=== PATIENT | female | born 1980 | race Hispanic/Latino ===

== ENCOUNTER 2022-09-30 14:35 | Emergency (ER) | payer OTHER, SELFPAY ==
[2022-09-30] VITALS (16 sets, daily range): BP systolic 138–155; BP diastolic 81–87; PULSE 63–81; RESP 16–19; TEMP 36.6; O2SAT 96–100
--- NOTE | ~2022-09-30 | CT_ITS ---
EXAMINATION: CT brain wo con DATE: 09/30/2022 19:15 INDICATION: headache . TECHNIQUE: Computed tomography (CT) of the head was performed without intravenous contrast. The mA wa s adjusted according to patient size. Iterative reconstruction technique was employed. The dose-lengt h product was 605.33 mGy-cm. COMPARISON: None FINDINGS: No acute intracranial hemorrhage or extra-axial fluid collection. No hydrocephalus, mass, or herniation. No acute ischemic infarct. Unremarkable dural venous sinus attenuation. No acute osseous abnormality. The aerated spaces are clear. IMPRESSION: No acute intracranial process. Reviewed, dictated and finalized at location K.
--- NOTE | 2022-09-30 19:26 | ED.HA ---
HPI - Headache General Chief Complaint: Headache Stated Complaint: face tingling, cough, sore throat, headache Time Seen by Provider: 09/30/22 19:04 Source: patient Mode of arrival: ambulatory Limitations: language barrier (Patient's family member is interpreting which she prefers) History of Present Illness HPI Narrative: This is a 41-year-old female that presents to the emergency department for cold symptoms ongoing over the last week. Reports headache, congestion, dry cough, and otalgia. Reports fevers earlier in the week. Denies vision changes, vomiting, numbness, or weakness. Related Data Allergies Allergy/AdvReac Type Severity Reaction Status Date / Time No Known Allergies Allergy Verified 09/30/22 19:00 Review of Systems Review of Systems: CONSTITUTIONAL: Reports fever EYES: Denies visual changes RESPIRATORY: Reports cough GASTROINTESTINAL: Denies vomiting NEUROLOGIC: Reports headache. Denies numbness, or weakness. All systems reviewed & are unremarkable except as noted in HPI and below PMFSH Past Medical History Medical History (Updated 09/30/22 @ 21:17 by Yara Redman PA-C) No active medical problems Social History Social History (Updated 09/30/22 @ 19:27 by Yara Redman PA-C) Smoking status: Never smoker Exam Narrative: GENERAL: Well-appearing, well-nourished, and in no acute distress. HEAD: Normocephalic, atraumatic. EYES: PERRLA and EOMI. ENT: Nares clear, no rhinorrhea or epistaxis. Mucous membranes moist. Oropharynx without tonsillar hypertrophy exudate or other lesions. Bilateral TMs pearly denson non-bulging NECK: Supple. No adenopathy or masses. CHEST: Clear to auscultation. No respiratory distress. No wheezes rales or rhonchi HEART: Regular rate and rhythm. No murmur heard. Normal peripheral pulses. EXTREMITIES: Normal range of motion. No edema. SKIN: Warm, dry, no rash. NEURO: No focal deficits. Alert and oriented x3. Cranial nerves II through XII grossly intact PSYCH: Normal mood and affect Course Vital Signs Vital signs: Vital Signs Temperature 97.9 F 09/30/22 14:59 Pulse Rate 81 09/30/22 14:59 Respiratory Rate 16 09/30/22 14:59 Blood Pressure 155/87 H 09/30/22 14:59 Pulse Oximetry 100 09/30/22 14:59 Oxygen Delivery Room Air 09/30/22 14:59 Temperature 97.9 F 09/30/22 14:59 Pulse Rate 72 09/30/22 19:00 Respiratory Rate 18 09/30/22 19:00 Blood Pressure 143/85 H 09/30/22 19:00 Pulse Oximetry 100 09/30/22 19:00 Oxygen Delivery Room Air 09/30/22 14:59 MDM - Headache MDM Narrative Medical decision making narrative: This is a 41 year old female that presents to the ER for cold symptoms ongoing over the last week. She is afebrile and nontoxic appearing. Lungs are clear on exam. Vitals are stable. Influenza and COVID swabs are negative. Patient largely reporting headaches. CT scan of her brain is negative. She is neurologically intact. Patient and family updated on case findings. She was instructed on continued care of viral infection. She is to follow-up with primary care provider. She was given warnings to return to the ER Lab Data Attestation: I reviewed the patient's lab results. Labs: Lab Results 09/30/22 Range/Units 19:09 Influenza A (RT-PCR) Negative (Negative) Influenza B (RT-PCR) Negative (Negative) SARS-CoV-2 RNA (RT-PCR) Negative Imaging Data Radiologist's impression: ITS Impressions Head CT 09/30/22 19:20 IMPRESSION: No acute intracranial process. Critical Care Time Critical Care Time Critical Care Time: No Discharge Plan Discharge Clinical Impression: Acute viral syndrome Headache Qualifiers: Headache type: unspecified Headache chronicity pattern: acute headache Intractability: not intractable Qualified Code(s): R51.9 - Headache, unspecified Patient Disposition: Home, Self-Care Condition: Stable Instructions: Acute Headache (ED), Julita
[2022-09-30] MEDS: KETOROLAC 30 MG/ML VIAL (*BKC) IM (19:50)
[2022-09-30] MEDS: ACETAMINOPHEN 500 MG TABLET 1000 MG PO (19:50)
[2022-09-30 20:07] LABS: Influenza A QL RT-PCR Negative (Negative); Influenza B QL RT-PCR Negative (Negative); SARS-CoV-2 RNA PCR Negative
== END 2022-09-30 21:39 | disposition home or self-care (01) ==
PROVIDERS: Physician Assistant; Emergency Provider Emergency Medicine; PCP Physician Assistant
DX: B34.9 Viral infection, unspecified (principal); Z20.822 Contact with and (suspected) exposure to COVID-19
CPT/HCPCS: 70450; 87502; 96372; 99284; A9270; J1885; U0003; U0005

== ENCOUNTER 2024-10-19 11:38 | Emergency (ER) | payer OTHER, SELFPAY ==
[2024-10-19 11:41] VITALS: BP 141/79; PULSE 74; RESP 18; TEMP 36.4; O2SAT 99
[2024-10-19] MEDS: KETOROLAC (*BKC) 60 MG/2 ML VIAL IM (13:29)
[2024-10-19] MEDS: MECLIZINE HCL 25 MG TABLET PO (13:30)
[2024-10-19 13:43] LABS: Basophils Percent Auto 0.5 % (0.2-1.2); Eosinophils Absolute Auto 0.2 K/mm3 (0-0.3); Eosinophils Percent Auto 3.8 % (0-4.4); Hemoglobin 12.2 g/dL (12.0-15.0); Immature Granulocyte Absolute 0.01 K/mm3 (0.00-0.031); Immature Granulocyte Percent A 0.2 % (0-0.5); Lymphocytes Absolute Auto 1.98 K/mm3 (0.9-3.2); Lymphocytes Percent Auto 35.5 % (18.3-44.2); Mean Corpuscular Hemoglobin 28.4 pg (26-34); Mean Corpuscular Volume 86.2 fl (80-100); Mean Platelet Volume 10.7 fl (7.4-10.4); Monocytes Absolute Auto 0.4 K/mm3 (0.1-0.6); Monocytes Percent Auto 6.5 % (2.6-8.5); Neutrophils Percent Auto 53.5 % (45.5-73.1); Platelet Count Result 238 k/mm3 (150-375); Red Blood Count 4.29 M/mm3 (4.2-5.4); Red Cell Distribution Width 13.2 % (11.5-14.5); White Blood Count 5.6 K/mm3 (4.5-10.0)
[2024-10-19 13:51] LABS: Alanine Aminotransferase 15 U/L (6-35); Albumin Level 4.3 g/dL (3.5-5.1); Alkaline Phosphatase 84 U/L (38-126); Anion Gap 7 mmol/L (4-12); Aspartate Amino Transferase 20 U/L (14-36); Bilirubin,Total 0.5 mg/dL (0.2-1.3); Blood Urea Nitrogen 10 mg/dL (7-17); Calcium 9.1 mg/dL (8.4-10.2); Carbon Dioxide 27 mmol/L (22-30); Chloride 105 mmol/L (98-107); Estimated CRCL calculation 104 ml/min; Estimated Glomerular Filt Rate > 60; Glucose 93 mg/dL (65-110); Potassium 3.4 mmol/L (3.4-5.0); Sodium 139 mmol/L (137-145)
--- NOTE | 2024-10-19 14:45 | ED.HA ---
HPI - Headache General Chief Complaint: Headache Stated Complaint: nausea and headache, no vomiting or diarrhea Time Seen by Provider: 10/19/24 13:01 History of Present Illness HPI Narrative: Patient is a 43-year-old female who presents ER with headache. Associated with dizziness and nausea. Ongoing over last couple days. Headache is aching and bandlike around the head. No alleviating factors at home. No fevers or chills or sweats. Patient also reports that she has intermittent tingling in right hand with pain that moves upper arm towards her shoulder. 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 Pain is worse at night. Related Data Allergies Allergy/AdvReac Type Severity Reaction Status Date / Time No Known Allergies Allergy Verified 10/19/24 11:40 Review of Systems Review of Systems: All systems reviewed & are unremarkable except as noted in HPI and below Constitutional: Constitutional: Reports no additional constitutional complaints ENT: Reports system reviewed and no additional complaints, except as documented Musculoskeletal: Musculoskeletal: Reports no additional musculoskeletal complaints Neurologic: Reports system reviewed and no additional complaints, except as documented PMFSH Past Medical History Medical History (Updated 10/19/24 @ 14:47 by Shailesh Pablo MD) No active medical problems Social History Social History (Updated 09/30/22 @ 19:27 by Yara Redman PA-C) Smoking status: Never smoker Exam Narrative: GENERAL: Well-appearing, well-nourished, and in no acute distress. HEAD: Normocephalic, atraumatic. EYES: PERRLA and EOMI. ENT: Mucous membranes moist. CHEST: Clear to auscultation. No respiratory distress. HEART: Regular rate and rhythm. Normal peripheral pulses. EXTREMITIES: Normal range of motion. No edema. Positive carpal tunnel compression test right wrist. SKIN: Warm, dry, no rash. NEURO: Alert and oriented x3. PSYCH: Normal mood and affect. Course Course Emergency Course: Feels markedly improved after Toradol meclizine. No more dizziness or nausea. Also discussed carpal tunnel syndrome and need for cock-up wrist splint. Patient verbalized understanding. Discharge. Vital Signs Vital signs: Vital Signs Temperature 97.6 F 10/19/24 11:41 Pulse Rate 74 10/19/24 11:41 Respiratory Rate 18 10/19/24 11:41 Blood Pressure 141/79 H 10/19/24 11:41 Pulse Oximetry 99 10/19/24 11:41 Oxygen Delivery Room Air 10/19/24 11:41 Temperature 97.6 F 10/19/24 11:41 Pulse Rate 74 10/19/24 11:41 Respiratory Rate 18 10/19/24 11:41 Blood Pressure 141/79 H 10/19/24 11:41 Pulse Oximetry 99 10/19/24 11:41 Oxygen Delivery Room Air 10/19/24 11:41 MDM - Headache Lab Data 10/19/24 13:35 10/19/24 13:35 Labs: Lab Results 10/19/24 Range/Units 13:35 WBC 5.6 (4.5-10.0) K/mm3 RBC 4.29 (4.2-5.4) M/mm3 Hgb 12.2 (12.0-15.0) g/dL Hct 37.0 (37.0-47.0) % MCV 86.2 (80-100) fl MCH 28.4 (26-34) pg MCHC 33.0 (32-36) g/dl RDW 13.2 (11.5-14.5) % Plt Count 238 (150-375) k/mm3 MPV 10.7 H (7.4-10.4) fl Immature Gran % (Auto) 0.2 (0-0.5) % Neut % (Auto) 53.5 (45.5-73.1) % Lymph % (Auto) 35.5 (18.3-44.2) % [place] % (Auto) 6.5 (2.6-8.5) % Eos % (Auto) 3.8 (0-4.4) % Baso % (Auto) 0.5 (0.2-1.2) % Lymph # (Auto) 1.98 (0.9-3.2) K/mm3 [place] # (Auto) 0.4 (0.1-0.6) K/mm3 Eos # (Auto) 0.2 (0-0.3) K/mm3 Baso # (Auto) 0.0 (0.0-0.1) K/mm3 Abs Immat Gran (auto) 0.01 (0.00-0.031) K/mm3 Absolute Neuts (auto) 3.0 (1.3-6.7) K/mm3 Absolute Nucleated RBC 0.000 (0.0-0.012) K/mm3 Nucleated RBC % 0.0 (0.0-0.2) % Sodium 139 (137-145) mmol/L Potassium 3.4 (3.4-5.0) mmol/L Chloride 105 (98-107) mmol/L Carbon Dioxide 27 (22-30) mmol/L Anion Gap 7 (4-12) mmol/L BUN 10 (7-17) mg/dL Creatinine 0.50 L (0.7-1.0) mg/dL Estim Creat Clear Calc 104 ml/min Estimated GFR > 60 (59 - ) Glucose 93 (65-110) mg/dL Calcium 9.1 (8.4-10.2) mg/dL Total Bilirubin 0.5 (0.2-1.3) mg/dL AST 20 (14-36) U/L ALT 15 (6-35) U/L Alkaline Phosphatase 84 (38-126) U/L Total Protein 7.0 (6.3-8.2) g/dL Albumin 4.3 (3.5-5.1) g/dL Discharge Plan Discharge Clinical Impression: Headache, Vertigo, Carpal tunnel syndrome Patient Disposition: Home, Self-Care Condition: Stable Instructions: Carpal Tunnel Syndrome (DC), Vertigo (ED), General Headache (ED) Additional Instructions: Try to stay well hydrated at home. Please return to the emergency department if you develop worsening of your headache or a new headache which is severe, associated with vision changes, associated with neck stiffness or fever, or if it is different from any other headache that you have had before. Return to the emergency department if you develop numbness, weakness or tingling or problems with coordination, or if you develop severe nausea and vomiting and are unable to keep down fluids at home. Prescriptions: New naproxen 375 mg tablet 375 mg PO BID Qty: 14 0RF meclizine 12.5 mg tablet 12.5 mg PO TID PRN (Reason: dizziness) Qty: 10 0RF Follow-up/Referrals: UNKNOWN,DOCTOR [Primary Care Provider] - Stand Alone Forms: Work/School Release IP
== END 2024-10-19 15:03 | disposition home or self-care (01) ==
PROVIDERS: Emergency Provider Emergency Medicine
DX: R51.9 Headache, unspecified (principal); R42 Dizziness and giddiness; G56.01 Carpal tunnel syndrome, right upper limb
CPT/HCPCS: 36415; 80053; 85025; 96372; 99283; A9270; J1885

== ENCOUNTER 2025-01-31 15:55 | Outpatient (CLI) | payer OTHER, SELFPAY | END 2025-01-31 15:56 | disposition home or self-care (01) | PROVIDERS: PCP Internal Medicine; Visit Provider Internal Medicine | DX: R51.9 Headache, unspecified (principal) | CPT/HCPCS: 70553; A9577; A9579 ==

== ENCOUNTER 2025-11-03 21:00 | Emergency (ER) | payer OTHER, SELFPAY ==
--- OUTSIDE RECORDS SUMMARY | 2015-01-25 05:30 | XMS_ITS | Continuity of Care Document ---
Author Organization [email or web address] Address [address] [place] [address] Phone Care Team Providers Care Practice Billing Associate Name Role Phone Unavailable Unavailable Unavailable Procedures Procedure Date Voided Encounter Advance Directives Directive Yes / No Effective Date File Name No Information Encounters Encounter Description Practice Location Reason(s) For Visit Diagnoses Date Provider Providers Copied on En[email or web address] [address], [place], [place], [id number], [place] tel:[phone] [email or web address] No Information No Information Family History Family Member Type Diagnosis Age At Onset No Information Payers Payer name Insurance type Covered constitution party ID Authoriza tion(s) No Information Social History Type Description Quantity Date Captured Comments Sex Female Smoking Status No Information Chief Complaint And Reason For Visit No Information Reason For Referral Reason For Referral No Information History Of Present Illness Encounter Date Complaint History Of Prese nt Illness No Information Functional Status Date Functional Assessmen t No Information Instructions Date Instruction Additional Infor mation No Information Assessments Type Assessment Date No Information Patient Care Teams Name Effective Dates (start - stop) Status Members No Information
--- OUTSIDE RECORDS SUMMARY | 2015-01-25 05:30 | XMS_ITS | Continuity of Care Document ---
Author Organization [facility] Address [address] [place] [address] Phone Care Team Providers Care Steel Plate Printer Name Role Phone Unavailable Unavailable Unavailable Procedures Procedure Date Voided Encounter Advance Directives Directive Yes / No Effective Date File Name No Information Encounters Encounter Description Practice Location Reason(s) For Visit Diagnoses Date Provider Providers Copied on Encounter [facility] , [address], [place], [place], [id number], [place] tel:[phone] [facility] No Information No Information Family History Family Member Type Diagnosis Age At Onset No Information Payers Payer name Insurance type Covered republican ID Authoriza tion(s) No Information Social History [...]
--- NOTE | ~2025-11-03 | XR_ITS ---
Examination: XR wrist RT min 3V Clinical History: R wrist injury s/p fall Comparison: None Technique: 4 views right wrist Findings/impression: 1. No fracture or dislocation. Reviewed, dictated and finalized at location R. NG MACHINE OPERATOR
--- NOTE | ~2025-11-03 | CT_ITS ---
EXAMINATION: CT lumbar spine wo con COMPARISON: None HISTORY: back pain s/p fall TECHNIQUE: Axial images were obtained through the spine without IV contrast. Coronal, sagittal reconstruction images were obtained from the axial views. CT scan performed using dose optimization techniques including the following automated exposure control; adjustment of mA and/or kV; use of iterative reconstruction technique. Automatic exposure control was used to reduce radiation dose. Permanent radiation dose record is archived to PACS. FINDINGS: The vertebral heights are intact. No fracture or subluxation. The disc heights are intact. Soft tissues unremarkable. Impression: No acute abnormality. Reviewed, dictated and finalized at location P. IFIED SURGICAL TECHNOLOGIST Impression: No acute abnormality.
--- NOTE | ~2025-11-03 | XR_ITS ---
Examination: XR knee RT min 4V Clinical History: R knee injury s/p fall Comparison: None Technique: 4 views right knee Findings/impression: 1. No fracture, dislocation, or effusion right knee. Reviewed, dictated and finalized at location R. TS DIRECTOR
--- OUTSIDE RECORDS SUMMARY | 2025-11-03 21:02 | XMS_ITS | Clinical Summary ---
Author Organization [facility] Address [facility] [place] [address] Care Team Providers Care Cabinet Installer Name Role Phone Anastacio Ellis MD Primary Care Provider [phone] Allergies No known active allergies Active Problems Problem Noted Date Diagnosed Date Excessive bleeding in premenopausal period 10/12 Social History Tobacco Use Types Packs/Day Years Used Date Smoking Tobacco: Never Assessed Personal Safety Answer Date Recorded Have you ever been in or are you currently in a harmful physical or emotional relationship or is someone making you feel afraid or unsafe? Denies 12/27/2024 Comments Unknown Sex and Gender Information Value Date Recorded Sex Assigned at Not on file Legal Sex Female 9:[address] Gender Identity Female 12/27/2024 11:[address] Sexual Orientation Not on file Last Filed Vital Signs Vital Sign Reading Time Taken Comments Blood Pressure 121/82 12/27/2024 11:[address] Pulse 80 12/27/2024 11:[address] Temperature 36.6 C (97.8 F) 12/27/2024 10:[address] Respiratory Rate 15 12/27/2024 11:3 [address] Oxygen Saturation 99% 12/27/2024 10: [address] Inhaled Oxygen Concentration - - Weight 73.8 kg (162 lb 11.2 oz) 025 10:[address]MA[address] Height - - Body Mass Index - - Plan of Treatment Upcoming Encounters Date Type Department Care Team (Latest Contact Info) Description 11/10/2025 1:[address] Hospital Encounter [facility] Operating Room [address] [place] [address] Albin Rosen MD [address] [place] [address] [address] [place] [address] 11/10/2025 1:30 [address] - 11/10/2025 2:30 [address] Surgery [facility] Operating [address] [place] [address] Albin Rosen MD [address] [place] [address] [address] [place] [address] ABLATION UTERINE HYSTEROSCOPY - NOVASURE Scheduled Procedures Name Priority Associated Diagnoses Date/Ti me ABLATION UTERINE HYSTEROSCOPY - NOVASURE Excessive bleeding in premenopausal period 11/10/2025 1:[address] Health Maintenance Due Date Last Done Comments Breast Cancer Screening-Mammogram 1978 Cervical Cancer Screening 1978 Colon Cancer Screening-Colonoscopy 1978 Depression Screening 1978 Hepatitis C Screening 1978 Hepatitis B Screening 1996 Regular Well Visit/Exam 18-64 1996 DTaP/Tdap/Td Vaccine (2 - Td or Tdap) 08/01/2025 08/01/2015 Influenza Vaccine (#1) 2025 8, 04/25/2015 Pneumococcal vaccine <65 Aged Out No longer eligible based on patient's age to complete this topic Insurance Care Teams Cabinet Installer Relationship Specialty Start Date End Date Anastacio Ellis MD PCP - General Internal Medicine 12/27/24
[2025-11-03 21:14] VITALS: BP 164/97; PULSE 80; RESP 18; TEMP 36.4; O2SAT 100
--- OUTSIDE RECORDS SUMMARY | 2025-11-04 00:54 | XMS_ITS | Clinical Summary ---
Author Organization [facility] Address [facility] [place] [address] Care Team Providers Care Senior Game Designer Name Role Phone Anastacio Ellis MD Primary Care Provider [phone] Allergies No known active allergies Active Problems [...] on file Legal Sex Female 9:51 AM STERILE PROCESSING MANAGER Gender Identity Female 12/27/2024 11:01 AM STERILE PROCESSING MANAGER Sexual Orientation Not on file Last Filed Vital Signs Vital Sign Reading Time Taken Comments Blood Pressure 121/82 12/27/2024 11:30 AM STERILE PROCESSING MANAGER Pulse 80 12/27/2024 11:30 AM STERILE PROCESSING MANAGER Temperature 36.6 C (97.8 F) 12/27/2024 10:07 AM STERILE PROCESSING MANAGER Respiratory Rate 15 12/27/2024 11:3 0 AM STERILE PROCESSING MANAGER Oxygen Saturation 99% 12/27/2024 10: 30 AM STERILE PROCESSING MANAGER Inhaled Oxygen Concentration - - Weight 73.8 kg (162 lb 11.2 oz) 025 10:07 AM STERILE PROCESSING MANAGER Height - - Body Mass Index - - Plan of Treatment Upcoming Encounters Date Type Department Care Team (Latest Contact Info) Description 11/10/2025 1:30 PM STERILE PROCESSING MANAGER Hospital Encounter [facility] Operating Room [address] [place] [address] Albin Rosen MD [address] [place] [address] [address] [place] [address] 11/10/2025 1:30 PM STERILE PROCESSING MANAGER - 11/10/2025 2:30 PM STERILE PROCESSING MANAGER Surgery [facility] Operating Room [address] [place] [address] Albin Rosen MD [address] [place] [address] [address] [place] [address] ABLATION UTERINE HYSTEROSCOPY - NOVASURE Scheduled Procedures Name Priority Associated Diagnoses Date/Ti me ABLATION UTERINE HYSTEROSCOPY - NOVASURE Excessive bleeding in premenopausal period 11/10/2025 1:30 PM STERILE PROCESSING MANAGER Health Maintenance Due Date Last Done Comments [...] to complete this topic Insurance Care Teams Senior Game Designer Relationship Specialty Start Date End Date Anastacio Ellis MD PCP - General Internal Medicine 12/27/24
--- OUTSIDE RECORDS SUMMARY | 2025-11-04 00:54 | XMS_ITS | Clinical Summary ---
Author Organization [facility] Address [address] [place] [address] Care Team Providers Care Marketing Account Executive Name Role Phone Unavailable Primary Care Provider Unavailabl e Source Comments [facility] Department of Health and Human Services,non-owned Affiliates and Associated Physician Practices is amultiple site organization consisting of ambulatory clinics and hospital sitesin [place], [place], [place] and [place]. This disclosure is being madepursuant to the Care Everywhere program and may not contain all information available regarding this patient. Last updated 18.[facility] Social History Tobacco Use Types Packs/Day Years Used Date Smoking Tobacco: Never Assessed Comments No Sex and Gender Information Value Date Recorded Sex Assigned at Not on file Legal Sex Female 9:01 AM CDT Gender Identity Not on file Sexual Orientation Not on file Plan of Treatment Health Maintenance Due Date Last Done Comments COLOGUARD (AGES 45-75) - COL ON CA SCREENING 1978 COLON MONITORING 1978 COLONOSCOPY - COLON CA SCREENING 1978 CT COLONOGRAPHY - COLON CA SCREENING 1978 Colorectal Cancer Screening 1978 FIT - COLON CA SCREENING 1978 FLEX SIG - COLON CA SCREENING 1978 LIPID TESTING 1978 MAMMOGRAM 1978 HIV SCREENING 1993 HEPATITIS C SCREENING 10/16/1996 DTAP/TDAP/TD VACCINES (1 - Tdap) 1997 HEPATITIS B VACCINE (1 of 3 - 19+ 3-dose series) 1997 DEPRESSION SCREENING 12/01/2024 COVID-19 VACCINE (1 - 2024-2 6 season) 2025 INFLUENZA VACCINE (#1) 2025 ZOSTER VACCINE (1 of 2) 2028 HIB VACCINE Aged Out No longer eligi ble based on patient's age to complete this topic HPV VACCINE Aged Out No longer eligi ble based on patient's age to complete this topic MENINGOCOCCAL (Group B) VACC INE SHARED DECISION-MAKING Aged Out No longer eligibl e based on patient's age to complete this topic MENINGOCOCCAL GROUPS A/C/Y/W VACCINE Aged Out No longer eligible b ased on patient's age to complete this topic PNEUMOCOCCAL VACCINE Aged Out No long er eligible based on patient's age to complete this topic Insurance [facility]
[2025-11-04 01:01] VITALS: BP 150/94; PULSE 68; RESP 18; O2SAT 100
[2025-11-04 01:16] VITALS: BP 153/92; O2SAT 100
[2025-11-04 01:30] LABS: BEDSIDEPREGUCG Negative (Negative)
--- NOTE | 2025-11-04 01:38 | ED.FALL ---
HPI - Fall General Chief Complaint: Fall Stated Complaint: fall, knee and back pain Time Seen by Provider: 11/04/25 00:42 History of Present Illness HPI Narrative: Patient is 45-year-old female presents to the ER after sustaining a fall. She reports she was at work and ?slipped on a piece of chicken. Patient reports she landed on her right knee and outstretched right arm. At time of examination she endorses pain to her right wrist, right knee, and and lower back. Her daughter denies any medical history relevant to this ER visit. Patient denies any loss of consciousness, head injury, neck pain or chest pain. Related Data Allergies Allergy/AdvReac Type Severity Reaction Status Date / Time No Known Allergies Allergy Verified 10/19/24 11:40 Review of Systems Review of Systems: All systems reviewed & are unremarkable except as noted in HPI and below PMFSH Past Medical History Medical History No active medical problems Social History Social History Smoking status: Never smoker Exam Narrative: GENERAL: Well appearing, well-nourished, non-toxic, in no acute distress. HEAD: Normocephalic, atraumatic. NECK: Supple. No adenopathy, no masses. RESPIRATORY: Airway patent, respirations nonlabored. Clear to auscultation bilaterally, no rales, rhonchi, wheezing. CARDIOVASCULAR: Regular rate and rhythm without murmurs, rubs, or gallops. Peripheral pulses 2+ and equal bilaterally. ABDOMINAL: Soft, nontender, nondistended, no hepatosplenomegaly. Normoactive BS. MUSCULOSKELETAL: Moves all extremities. Strength/ROM intact without gross deformities. + SNUFFBOX TENDERNESS R hand, pain with palpation to lower spine SKIN: Warm, dry, normal color. No rashes. Mild bruising R wrist, Mild bruising R knee NEURO: A&O X3. Speech clear. Cranial nerves II-XII intact. No ataxic movements. PSYCHIATRIC: Appropriate mood and affect. Normal interaction. Course Vital Signs Vital signs: Vital Signs Temperature 36.4 C 11/03/25 21:14 Pulse Rate 80 11/03/25 21:14 Respiratory Rate 18 11/03/25 21:14 Blood Pressure 164/97 H 11/03/25 21:14 Pulse Oximetry 100 11/03/25 21:14 Oxygen Delivery Room Air 11/03/25 21:14 Temperature 36.4 C 11/03/25 21:14 Pulse Rate 80 11/03/25 21:14 Respiratory Rate 18 11/03/25 21:14 Blood Pressure 164/97 H 11/03/25 21:14 Pulse Oximetry 100 11/03/25 21:14 Oxygen Delivery Room Air 11/03/25 21:14 Procedures Orthopedic Splinting/Casting Injury #1: Splinting/Casting Date: 11/04/25 Splinting/Casting Time: 04:01 Side: right Upper Extremity Injury Location: wrist Upper Extremity Immobilizer: volar splint Splint: customized in ED OCL: volar Pre-Procedure Neuro Vascular Exam: normal Post-Procedure Neuro Vascular Exam: normal MDM MDM Narrative Medical decision making narrative: Patient is 45-year-old female presents to the ER after sustaining a fall. She reports she was at work and ?slipped on a piece of chicken. Patient reports she landed on her right knee and outstretched right arm. At time of examination she endorses pain to her right wrist, right knee, and and lower back. Her daughter denies any medical history relevant to this ER visit. Patient denies any loss of consciousness, head injury, neck pain or chest pain. Labs Ordered: None necessary Imaging Ordered: Right wrist x-ray, right knee x-ray, CT lumbar spine Medications Ordered: Woodrow p.o. Results: Patient's CT lumbar spine indicates no acute findings. Mild disc bulge L4-L5 and L5-S1 measuring 3-4 mm. No central canal foraminal stenosis. Diagnosis: Right wrist injury, musculoskeletal back pain, bulging discs, fall Consults: orthopedic surgery, outpatient My Patient Education/Shared MDM: Results of lab work and imaging shared with patient. Due to her positive snuffbox tenderness, patient's right wrist will be placed into an OCL splint. She will be given a Woodrow here in the ER to treat her pain. Patient strongly advised to follow-up with Orthopedic surgery and Neurosurgery for further evaluation and treatment. She will be discharged home with a prescription for lidocaine patches and ibuprofen 800 mg. Strict return precautions provided. Patient verbalized understanding and is in agreement with plan. Vital signs stable at time of discharge. All questions answered. Differential Diagnosis Differential Diagnosis: Right scaphoid fracture, right wrist brain, lumbar strain, lumbar fracture, right knee dislocation Lab Data [facility] Lab Attestation statement: I personally reviewed the patient's lab results. Labs: Lab Results 11/04/25 Range/Units 01:27 POC Urine HCG, Qual Negative (Negative) Imaging Data Attestation: I personally reviewed and interpreted this imaging study as follows: Radiologist's impression: Patient's CT lumbar spine indicates no acute findings. Mild disc bulge at L4-L5 and L5-S1 measuring 3-4 mm. No central canal or foraminal stenosis. Pt's R knee x-ray indicates no acute osseous abnormality. Pt's R wrist x-ray indicates no acute osseous abnormality. Discharge Plan Discharge Clinical Impression: Injury of wrist, right, Tenderness of anatomical snuffbox, Bulging of intervertebral disc between L4 and L5, Acute back pain, Pain of right knee after injury, Bulging discs Patient Disposition: Home Condition: Stable Instructions: Antibiotic Form, Acute Low Back Pain (ED), Splint Care (ED) Additional Instructions: Please return to the ER with any worsening symptoms. Follow-up with orthopedic surgery as soon as possible for re-evaluation of your wrist. You may follow-up with neurosurgery regarding the bulging discs in your back. Please place lidocaine patches on your back where you are experiencing pain. You may also take Ibuprofen 800mg every eight hours for pain control. Please ice areas of discomfort every 2-3 hours for 20 minutes. Patient Language: Macedonian Prescriptions: New lidocaine 5 % adhesive patch,medicated 2 patch topical DAILY Qty: 30 0RF Rx Instructions: leave on most painful area for up to 12 hrs ibuprofen 800 mg tablet 800 mg PO TID Qty: 30 0RF No Action naproxen 375 mg tablet 375 mg PO BID Qty: 14 0RF meclizine 12.5 mg tablet 12.5 mg PO TID PRN (Reason: dizziness) Qty: 10 0RF Follow-up/Referrals: Caleb,MD Anastacio [Primary Care Provider] Wanda Ferraro MD [Physician, Neurosurgery] Ephraim Barajas MD [Physician, Orthopedics] Stand Alone Forms: Work/School Release IP Time of Disposition: 04:00
[2025-11-04] MEDS: HYDROcodone/acetaminophen (*CRX) 5-325 MG TABLET 1 TAB PO (02:33)
== END 2025-11-04 04:10 | disposition home or self-care (01) ==
PROVIDERS: Emergency Provider Registered Nurse; PCP Internal Medicine
DX: S89.91XA Unspecified injury of right lower leg, initial encounter (principal); S69.91XA Unspecified injury of right wrist, hand and finger(s), initial encounter; S39.92XA Unspecified injury of lower back, initial encounter; M51.369 Other intervertebral disc degeneration, lumbar region without mention of lumbar back pain or lower extremity pain; W01.0XXA Fall on same level from slipping, tripping and stumbling without subsequent striking against object, initial encounter
CPT/HCPCS: 29125; 72131; 73110; 73564; 81025; 99284; A9270